=== PATIENT | male | born 1955 | race Caucasian/White ===

== ENCOUNTER 2017-09-13 09:05 | Observation (INO) ==
[2017-09-13] MEDS ORDERED: predniSONE 20 MG TABLET PO ONE (09:25)
[2017-09-13] MEDS ORDERED: Ipratropium/Albuterol Neb 3 ML IH ONE (09:26)
--- NOTE | 2017-09-13 09:29 | Emergency Department Note ---
Disposition Clinical Impression: COPD with exacerbation, Hypoxia Disposition: Home, Self-Care Condition: Good Instructions: Chronic Obstructive Pulmonary Disease (ED) Reasons to Return/Additional Instructions: Follow-up with PCP in 48 hours for reexamination, also to have conversation concerning further prescription for spiriva. Have your CPAP machine evaluated. Return if you have any worsening shortness of breath. Referrals: Marie Krause, PROVIDER RELATIONS REPRESENTATIVE [Primary Care Provider] - Forms: ED Satisfaction Letter Time of Disposition: 10:55 SOB HPI - General Chief Complaint: ED Shortness of Breath/Dyspnea Stated Complaint: VIVIANE Time Seen by Provider: 09/13/17 09:17 Source: patient, EMS Limitations: no limitations Nursing Notes Reviewed: Yes Vital Signs Reviewed: Yes - History of Present Illness 62-year-old male complains of shortness of breath 1 week. Patient states he has a history of COPD and started to get acutely worse after starting a new medication called Anora, which replaces his spiriva, which will no longer be covered by his insurance. Patient complains of pain in the left lower lung, which is worse with coughing and states he thinks he has lung collapse in that area. He states he has sharp 8/10 intermittent pain worse with inspiration and nothing makes it better. Patient also complains of subjective fevers. Report from EMS states that patient was on a CPAP at home when they arrived. They stated his initial O2 saturation was around 70s on room air and mid to high 80s on the CPAP. Patient was transferred onto their O2 system and patient's O2 sats were up to 94%. No other interventions were given. - Related Data Home Medications Medication Instructions Recorded Confirmed Albuterol Sulfate [Ventolin Hfa] 1 puff IH AD 09/13/17 09/13/17 Fluticasone Propionate Nasal 1 spr NS DAILY 09/13/17 09/13/17 [Flonase] Lisinopril-HCTZ 10-12.5 [Prinzide 1 tab PO DAILY 09/13/17 09/13/17 10-12.5] OxyCODONE/APAP 7.5/325 [Percocet 1 each PO Q6HR PRN 09/13/17 09/13/17 7.5/325 MG] Tiotropium [Spiriva] 1 puff IH DAILY 09/13/17 09/13/17 Allergies Allergy/AdvReac Type Severity Reaction Status Date / Time Amoxicillin [From Augmentin] AdvReac Itching Verified 05/01/15 10:08 clavulanic acid AdvReac Itching Verified 05/01/15 10:08 [From Augmentin] All systems ED: reviewed and negative except as stated. Review of Systems: As Per HPI Constitutional: Reports: fever Respiratory: Reports: cough, dyspnea Past Medical History - Past Medical History Attestation: Yes The following information was validated with the patient. Source: patient, nursing notes reviewed Medical history: Reports: arthritis, COPD, hypertension Psychiatric history: Reports: no psych history - Social History Smoking Status: Former smoker Alcohol use: Reports: occasionally Physical Exam Vital Signs Temperature 98.9 F 09/13/17 09:07 Pulse Rate 97 09/13/17 09:07 Respiratory Rate 19 09/13/17 09:07 Blood Pressure 189/110 09/13/17 09:07 O2 Sat by Pulse Oximetry 87 09/13/17 09:07 Temperature 98.9 F 09/13/17 09:07 Pulse Rate 97 09/13/17 09:07 Respiratory Rate 19 09/13/17 09:07 Blood Pressure 189/110 09/13/17 09:07 O2 Sat by Pulse Oximetry 91 09/13/17 09:21 Oxygen Delivery Oxygen Delivery Room Air CONSTITUTIONAL: Alert and oriented X3, well-nourished, well appearing, in no apparent distress HEAD: Normocephalic; atraumatic. EYES: PERRL, no scleral icterus. NOSE: The nose is normal in appearance without rhinorrhea RESP: Normal chest excursion with respiration; ; no wheezes, rhonchi, fine bibasilar rales can be heard upon auscultation CARD: Regular rhythm, without murmurs, rub or gallop ABD: Non-distended; non-tender, soft,without rigidity, rebound or guarding SKIN: Normal for age and race; warm and dry; no apparent lesions - General Limitations: no limitations General appearance: alert Course - Reevaluation(s) Reevaluation #1: Patient's VBG was unremarkable. Patient states breathing is improved and discomfort with inspiration is lessening after breathing treatment. Patient awaiting go to chest x-ray Time: 10:07 Reevaluation #2: 1055 hrs.: Patient's is at bedside and asked if patient had the flu, patient then divulged that he had a fever of 101 last night. 1117 hrs: Patient failed his ambulation test with a drop in O2 sat down to 80%. Current plan is patient to be admitted Time: 11:17 - Consultations Consultation #1: Dr. [facility] has accepted the patient for admission Time: 11:56 Vital Signs Temperature 98.9 F 09/13/17 09:07 Pulse Rate 97 09/13/17 09:07 Respiratory Rate 19 09/13/17 09:07 Blood Pressure 189/110 09/13/17 09:07 O2 Sat by Pulse Oximetry 87 09/13/17 09:07 Temperature 98.9 F 09/13/17 09:07 Pulse Rate 94 09/13/17 13:36 Respiratory Rate 16 09/13/17 13:36 Blood Pressure 190/99 09/13/17 13:36 O2 Sat by Pulse Oximetry 91 09/13/17 13:36 Oxygen Delivery Oxygen Delivery Room Air Shortness of Breath/Dyspnea - MDM Narrative Medical decision making narrative: Patient presents with SOB concerning for COPD exacerbation and complains of subjective fevers. FeverCurrent plan is to assess for pneumonia. Patient's low risk for PE under Wells criteria and clinical signs of DVT, PE is not my #1 , heart rate was less than 100 and patient denies any immobilization or previous surgery with an past 4 weeks. No hemoptysis no history of cancer or malignancy. Other possibilities for differential include ACS/TX, aortic dissection, pneumothorax, but currently doubt at this time. The patient has no description of tearing chest pain from front to back and no pulse deficit. Patient has no decrease in lung sounds but will verify with chest x-ray for possible pneumothorax. CBC, BMP, troponin ordered to rule out TX the patient's EKG shows normal sinus rhythm no signs of ischemia. He was given DuoNeb therapy which he states improved his symptoms, and chest x- ray was negative for any signs of pneumothorax or pneumonia, but showed bilateral pleural effusions and lung bases. Chest x-ray was compared to previous chest x-ray months ago which show the same picture. Upon ambulation patient's oxygen saturation dropped to 80% while on oxygen. Failure to maintain his O2 sats at his normal baseline requires admission. Patient understands and agrees to this is a true admission. Dr. Brown [facility] has accepted the patient for admission and asked that the patient be started on one dose of Lasix 40 mg IV, and BNP ordered. Both of which has been completed. - Lab Data Lab results reviewed: Yes I reviewed the patient's lab results. Lab results narrative: Short CBC 09/13/17 Range/Units 09:29 WBC 8.9 (4.3-11.1) K/mcL Hgb 14.3 (12.9-16.9) g/dL Hct 41.7 (37.5-50.1) % Plt Count 238 (140-400) K/mcL Neutrophils # 6.5 (1.6-8.9) K/mcL BMP 09/13/17 Range/Units 09:29 Sodium 133 L (136-145) mEq/L Potassium 3.5 (3.5-5.1) mEq/L Chloride 97 L (98-107) mEq/L Carbon Dioxide 26 (23-29) mEq/L BUN 10 (8-23) mg/dL Creatinine 0.70 (0.70-1.30) mg/dL Glucose 114 H (70-105) mg/dL Calcium 9.3 (8.6-10.3) mg/dL Cardiac Enzymes 09/13/17 Range/Units 09:29 Troponin I 0.03 (< 0.04) ng/mL Result diagrams: 09/13/17 09:29 09/13/17 09:29 Lab Results 09/13/17 09/13/17 09/13/17 Range/Units 09:29 09:29 09:29 WBC 8.9 (4.3-11.1) K/mcL RBC 4.69 (4.19-5.50) M/mcL Hgb 14.3 (12.9-16.9) g/dL Hct 41.7 (37.5-50.1) % MCV 88.9 (83.0-100.0) fL MCH 30.5 (28.0-33.3) pg MCHC 34.3 (31.6-35.5) g/dL RDW 12.6 (11.5-14.5) % Plt Count 238 (140-400) K/mcL MPV 8.1 L (9.4-12.4) fL Immature Gran % 0.6 (0-4) % Seg Neutrophils % 73.0 % Lymphocytes % 16.0 % Monocytes % 9.3 % Eosinophils % 0.9 % Basophils % 0.2 % Neutrophils # 6.5 (1.6-8.9) K/mcL Lymphocytes # 1.4 (0.6-4.6) K/mcL Monocytes # 0.8 (0.0-1.3) K/mcL Eosinophils # 0.1 (0.0-0.6) K/mcL Basophils # 0.0 (0.0-0.2) K/mcL VBG pH (7.32-7.42) pH Units VBG pCO2 (41-51) mmHg VBG pO2 (25-50) mmHg VBG HCO3 (21-27) mEq/L Sodium 133 L (136-145) mEq/L Potassium 3.5 (3.5-5.1) mEq/L Chloride 97 L (98-107) mEq/L Carbon Dioxide 26 (23-29) mEq/L BUN 10 (8-23) mg/dL Creatinine 0.70 (0.70-1.30) mg/dL Est GFR ( Amer) > 60 (> 60) Est GFR (Non-Af Amer) > 60 (> 60) BUN/Creatinine Ratio 14 (6-26) Glucose 114 H (70-105) mg/dL Calculated Osmolality 276 L (280-300) Calcium 9.3 (8.6-10.3) mg/dL Troponin I 0.03 (< 0.04) ng/mL B-Natriuretic Peptide (Less than 100) pg/mL 09/13/17 09/13/17 Range/Units 09:29 09:49 WBC (4.3-11.1) K/mcL RBC (4.19-5.50) M/mcL Hgb (12.9-16.9) g/dL Hct (37.5-50.1) % MCV (83.0-100.0) fL MCH (28.0-33.3) pg MCHC (31.6-35.5) g/dL RDW (11.5-14.5) % Plt Count (140-400) K/mcL MPV (9.4-12.4) fL Immature Gran % (0-4) % Seg Neutrophils % % Lymphocytes % % Monocytes % % Eosinophils % % Basophils % % Neutrophils # (1.6-8.9) K/mcL Lymphocytes # (0.6-4.6) K/mcL Monocytes # (0.0-1.3) K/mcL Eosinophils # (0.0-0.6) K/mcL Basophils # (0.0-0.2) K/mcL VBG pH 7.39 (7.32-7.42) pH Units VBG pCO2 43 (41-51) mmHg VBG pO2 47 (25-50) mmHg VBG HCO3 26 (21-27) mEq/L Sodium (136-145) mEq/L Potassium (3.5-5.1) mEq/L Chloride (98-107) mEq/L Carbon Dioxide (23-29) mEq/L BUN (8-23) mg/dL Creatinine (0.70-1.30) mg/dL Est GFR ( Amer) (> 60) Est GFR (Non-Af Amer) (> 60) BUN/Creatinine Ratio (6-26) Glucose (70-105) mg/dL Calculated Osmolality (280-300) Calcium (8.6-10.3) mg/dL Troponin I (< 0.04) ng/mL B-Natriuretic Peptide 43 (Less than 100) pg/mL - Radiology Data Radiology results reviewed: Yes I reviewed the patient's radiology results. Chest X-Ray 09/13/17 09:24 IMPRESSION: Small bilateral pleural effusions and mild pulmonary edema. D/ / Jett Knight MD / Jett Knight MD Interpreting Provider: Jett Knight MD - EKG Data EKG attestation: Yes I reviewed and interpreted this EKG. EKG results narrative: EKG taken 09/13/2017@0916 hrs. shows a sinus rhythm at a rate of [address] elevations or depressions in any leads, no QRS widened QT prolongation. No S1, Q3,T3 EKG is equivalent and waveform to increase EKG taken 07/13/2014 shows a sinus rhythm as well.
--- NOTE | 2017-09-13 09:32 | Emergency Department Note ---
START Narrative - START START: I examined this patient and my medical decision-making was reviewed with the SALES VICE PRESIDENT/PA/Advanced Practice Nurse/Resident Physician. I agree with the documented findings, disposition and treatment plan as described except to the extent set forth below. ED attending: Patient's emergency medicine resident Dr. Royer Marshall. Please see copy of this note for H&P evaluation and management and ED disposition. We both had independent [id number] time in contact with this patient. Briefly: 62-year-old former smoker quit 6 months ago on home CPAP recently was attempted be changed office rebate nor. Comes in with increasing shortness of breath and cough for some maybe sputum change in fever. Denies chest pain or trauma. No ill contacts. Faint expiratory wheeze and bibasilar crackles. Hypertensive but initially satting about 70s on room air then on his CPAP machine he is in the high 80s low 90s. Patient will get a DuoNeb blood work and lateral chest x-ray or steroids. Patient does have 2 months of backup Spiriva which she will now use. Disposition pending.
[2017-09-13 09:48] LABS: Basophils % 0.2 %; Eosinophils # 0.1 K/mcL (0.0-0.6); Eosinophils % 0.9 %; Hematocrit 41.7 % (37.5-50.1); Hemoglobin 14.3 g/dL (12.9-16.9); Immature Granulocytes % 0.6 % (0-4); Lymphocytes # 1.4 K/mcL (0.6-4.6); Mean Corpuscular HGB Conc 34.3 g/dL (31.6-35.5); Mean Corpuscular Hemoglobin 30.5 pg (28.0-33.3); Mean Corpuscular Volume 88.9 fL (83.0-100.0); Mean Platelet Volume 8.1 fL (9.4-12.4); Monocytes # 0.8 K/mcL (0.0-1.3); Monocytes % 9.3 %; Neutrophils # 6.5 K/mcL (1.6-8.9); Platelet Count 238 K/mcL (140-400); Red Blood Count 4.69 M/mcL (4.19-5.50); Red Cell Distribution Width 12.6 % (11.5-14.5)
[2017-09-13 09:51] LABS: VBG HCO3 26 mEq/L (21-27); VBG PCO2 43 mmHg (41-51); VBG PH 7.39 pH Units (7.32-7.42); VBG PO2 47 mmHg (25-50)
[2017-09-13 10:11] LABS: BUN/Creatinine Ratio 14 (6-26); Blood Urea Nitrogen 10 mg/dL (8-23); Calcium 9.3 mg/dL (8.6-10.3); Carbon Dioxide 26 mEq/L (23-29); Chloride 97 mEq/L (98-107); Glucose 114 mg/dL (70-105); Osmolality,Calculated 276 (280-300); Potassium 3.5 mEq/L (3.5-5.1); Sodium 133 mEq/L (136-145); eGFR For African Americans > 60 (> 60); eGFR For Non-African Americans > 60 (> 60)
[2017-09-13] MEDS ORDERED: Furosemide 40 MG/4 ML VIAL IVP ONE (11:56)
[2017-09-13] MEDS ORDERED: *HR* Enoxaparin 40 MG/0.4 ML SYRINGE SQ ONE (13:41)
[2017-09-13] MEDS ORDERED: Naloxone 0.4 MG/ML INJ IVP PRN (13:44)
--- NOTE | 2017-09-13 13:59 | Event Note ---
Date of Encounter: 09/13/17 Time of Encounter: 13:57 1. Acute hypoxic respiratory failure possibly secondary to acute diastolic CHF exacerbation with bilateral pleural effusions and mild acute pulmonary edema Send a CT angiogram of the chest as there is suspicion for possible pulmonary emboli Depending on these results we will decide on continuing Lasix or starting either Lovenox or heparin 2. History of COPD, consider oral steroids, DuoNeb's and oxygen therapy 3. Accelerated hypertension, continue lisinopril, hydrochlorothiazide and add hydralazine IV as needed 4. Mild fever, unclear etiology Omeprazole for GI prophylaxis and Lovenox for DVT prophylaxis. The patient will be admitted for observation. Full code. Time spent on this admission 40 minutes. H&P will be completed by Resident Jana Kim
--- NOTE | 2017-09-13 14:05 | Internal Med History&Physical ---
<Jana Kim - Last Filed: 09/13/17 14:40> Date of Encounter: 09/13/17 Time of Encounter: 13:45 Assessment and Plan (1) Acute respiratory failure with hypoxia Current visit: Yes Status: Acute Acute respiratory failure with hypoxia concerning for PE. Possibly secondary to acute diastolic CHF exacerbation with bilateral pleural effusions and acute pulmonary edema or COPD exacerbation tachycardic HR 97 SPO2 88% BP 170/88 WBC WNL BNP 43 CXR demonstrated small bilateral pleural effusion and pulmonary edema VBG: pH 7.39, CO2 43, pO2 47, HCO3 26 influenza negative Plan STAT CTA pending echo ordered Lovenox 40mg once supplemental oxygen PRN continuous pulse ox and telemetry monitoring consider steroids, lasix, and heparin pending CTA result strict I&O daily weights (2) Hypertension Current visit: Yes Status: Acute History of hypertension taking lisinopril-hydrochlorothiazide BP 170/88 continue home medication hydralazine PRN Qualifiers: Qualified Code(s): I10 - Essential (primary) hypertension (3) COPD (chronic obstructive pulmonary disease) Current visit: Yes Status: Acute History of COPD controlled with Spiriva and ventolin former smoker 1-2 ppd/50yr CXR demonstrated small bilateral pleural effusion pulmonary edema Lungs were clear to auscultation with Rales bilateral base of lungs continue duonebs consider steroids supplemental oxygen PRN Qualifiers: Qualified Code(s): J44.9 - Chronic obstructive pulmonary disease, unspecified (4) DVT prophylaxis Current visit: Yes Status: Acute Lovenox sq Internal Medicine - H&P: HPI Chief complaint: shortness of breathe Admitted From: Emergency Dept Plans for Post Hospital Care: Home History of present illness: Mr. Bateman is a 62 year old male with a past medical history of COPD and hypertension. He reported that on Wednesday he became short of breath after switching to a new inhaler. The shortness of breath progressively worsened throughout the week and on Wednesday he called his PCP who instructed him to stop taking the new inhaler and go back to using his Spiriva. Despite the change of inhalers the shortness of breath worsened to the point that he would walk down the [place]ad and would be short of breathe, so he called his PCP who instructed him to call EMS. He has pleuritic back pain that he has never had before, it is sharp in nature. Moving around made shortness of breath worse and sitting still made it better. His COPD has been well-controlled with his Spiriva and Ventolin , he is not on oxygen. He reports that he has had fever, chills, and had blood in his tissue when he blew his nose. He has never been hospitalized for COPD exacerbation. He denies chest pain, nausea, vomiting, diaphoresis, hemoptysis, cough. He denies recent travel, sickness, trauma, blood clots (PE or DVT), immobilization, MS, stroke. He has had his flu shot this year. He is a former smoker of 1-2 packs per day for 50 years, he quit 6 months ago. Occasional alcohol and no drug use. Family history of mother having lung cancer. He is alongside his cousin. In the ED patient was afebrile, tachycardic HR 97, SPO2 88%, BP 170/88. CXR showed small bilateral pleural effusion and pulmonary edema. Upon my examination of the patient he reported that he was not currently having difficulty in breathing on room air SPO2 88% when sitting but when he was walked alongside a nurse earlier he had de-saturation of SPO2 to 81%. Past Med Surg Social Fam HX - Past Medical History Medical history: arthritis, COPD, hypertension Psychiatric history: no psych history - Past Surgical History Surgical History: appendectomy, hip replacement, knee replacement - Social History Smoking Status: Former smoker (1-2 ppd /50yr) Alcohol use: occasionally Drug use: none Recent Out of Country Travel Within the Last 8 Weeks: No - Family History Mother Hx Family Cancer: Yes (Lung cancer) Internal Medicine - H&P: Meds Albuterol Sulfate [Ventolin Hfa] 1 puff IH AD 09/13/17 [History] Fluticasone Propionate Nasal [Flonase] 1 spr NS DAILY 09/13/17 [History] Lisinopril-HCTZ 10-12.5 [Prinzide 10-12.5] 1 tab PO DAILY 09/13/17 [History] OxyCODONE/APAP 7.5/325 [Percocet 7.5/325 MG] 1 each PO Q6HR PRN 09/13/17 [ History] Tiotropium [Spiriva] 1 puff IH DAILY 09/13/17 [History] 3 Allergy/AdvReac Type Severity Reaction Status Date / Time Amoxicillin [From Augmentin] AdvReac Itching Verified 05/01/15 10:08 clavulanic acid AdvReac Itching Verified 05/01/15 10:08 [From Augmentin] All Systems PM: A 10-system review of systems was performed and is negative for pertinent findings except as documented above in the HPI. Review of systems: - Constitutional: admits fevers, chills denies weight loss, generalized fatigue - Head/Neck: Denies LIANG, neck stiffness - EENT: Denies vision changes/blurriness, tinnitus, auditory changes, rhinorrhea , congestion - CVS: Denies chest pain, palpitations, syncope - Pulm: admits SOB Denies cough, sputum, hematemesis, wheezing - GI: Denies abdominal pain, nausea, vomiting, diarrhea, constipation, melena - MSK: admits pleuritic back pain Denies joint pain, limited ROM, weakness - Skin: Denies rashes, ulcers, color changes, itching - Constitutional Vitals: Temp Pulse Resp BP Pulse Ox 98.9 F 94 16 190/99 91 09/13/17 09:07 09/13/17 13:36 09/13/17 13:36 09/13/17 13:36 09/13/17 13:36 Exam: Gen.: Vitals noted. No acute distress. AAOx3 HEENT: oropharynx clear, Normocephalic, atraumatic Neck: Supple. No adenopathy. Cardiac: RRR, no murmur, +S1/S2 Pulmonary: + b/l rales CTA bilaterally, no wheezes, or rhonchi, equal chest expansion Abdomen: soft, nontender, Bowel sounds noted, no guarding Back: Nontender throughout. MSK: ROM intact, no joint swelling noted Extremities: no BLE edema, nontender calf, no cyanosis or clubbing Neuro: A&Ox3, moves all extremities Psych: Appropriate mood and behavior Internal Med - H&P Results - Labs CBC & Chem 7: 09/13/17 09:29 09/13/17 09:29 Labs: Short CBC 09/13/17 Range/Units 09:29 WBC 8.9 (4.3-11.1) K/mcL Hgb 14.3 (12.9-16.9) g/dL Hct 41.7 (37.5-50.1) % Plt Count 238 (140-400) K/mcL Neutrophils # 6.5 (1.6-8.9) K/mcL BMP 09/13/17 09:29 Sodium 133 L Potassium 3.5 Chloride 97 L Carbon Dioxide 26 BUN 10 Creatinine 0.70 Glucose 114 H Calcium 9.3 Cardiac Enzymes 09/13/17 Range/Units 09:29 Troponin I 0.03 (< 0.04) ng/mL - ABG Interpretation ABG results: 09/13/17 09:49 VBG pH 7.39 VBG pCO2 43 VBG pO2 47 VBG HCO3 26 - Impressions ITS Impressions Chest X-Ray 09/13/17 09:24 IMPRESSION: Small bilateral pleural effusions and mild pulmonary edema. D/ / Jett Knight MD / Jett Knight MD Interpreting Provider: Jett Knight MD <Dylon Miranda H - Last Filed: 09/13/17 14:54> Date of Encounter: 09/13/17 Internal Medicine - H&P: HPI History of present illness: Mr. Bateman is a 62 year old male All Systems PM: A 10-system review of systems was performed and is negative for pertinent findings except as documented above in the HPI. - Constitutional Vitals: Temp Pulse Resp BP Pulse Ox 98.9 F 94 16 190/99 91 09/13/17 09:07 09/13/17 13:36 09/13/17 13:36 09/13/17 13:36 09/13/17 13:36 Internal Med - H&P Results - Labs CBC & Chem 7: 09/13/17 09:29 09/13/17 09:29 - Attending Attestation 1. Acute hypoxic respiratory failure possibly secondary to acute diastolic CHF exacerbation with bilateral pleural effusions and mild acute pulmonary edema Send a CT angiogram of the chest as there is suspicion for possible pulmonary emboli Depending on these results we will decide on continuing Lasix or starting either Lovenox or heparin 2. History of COPD, consider oral steroids, DuoNeb's and oxygen therapy 3. Accelerated hypertension, continue lisinopril, hydrochlorothiazide and add hydralazine IV as needed 4. Mild fever, unclear etiology Omeprazole for GI prophylaxis and Lovenox for DVT prophylaxis. The patient will be admitted for observation. Full code. Time spent on this admission 40 minutes. I examined this patient and my medical decision-making was reviewed with the Resident Physician. I agree with the documented findings, disposition and treatment plan as described except to the extent set forth below.
[2017-09-13] MEDS ORDERED: Ipratropium/Albuterol Neb 3 ML IH PRN (14:18)
[2017-09-13] MEDS: Ipratropium/Albuterol Neb 3 ML IH SCH ×2 (15:33→22:57)
[2017-09-13] MEDS: Furosemide 20 MG/2 ML VIAL IVP SCH ×2 (16:12→20:02)
[2017-09-13] MEDS: Levofloxacin 750 MG/150 ML 750 MG/150 ML BAG IVPB SCH (16:23)
[2017-09-13] MEDS: MethylPREDNISolone 40 MG/ML VIAL IVP SCH ×2 (16:23→23:48)
[2017-09-14] MEDS: Ipratropium/Albuterol Neb 3 ML IH SCH ×2 (05:06→10:55)
[2017-09-14 05:42] LABS: Hematocrit 41.6 % (37.5-50.1); Hemoglobin 14.3 g/dL (12.9-16.9); Mean Corpuscular HGB Conc 34.4 g/dL (31.6-35.5); Mean Corpuscular Hemoglobin 30.3 pg (28.0-33.3); Mean Corpuscular Volume 88.1 fL (83.0-100.0); Mean Platelet Volume 8.4 fL (9.4-12.4); Platelet Count 286 K/mcL (140-400); Red Blood Count 4.72 M/mcL (4.19-5.50); Red Cell Distribution Width 12.6 % (11.5-14.5)
[2017-09-14 05:52] LABS: BUN/Creatinine Ratio 24 (6-26); Blood Urea Nitrogen 17 mg/dL (8-23); Calcium 8.9 mg/dL (8.6-10.3); Carbon Dioxide 24 mEq/L (23-29); Chloride 103 mEq/L (98-107); Glucose 203 mg/dL (70-105); Osmolality,Calculated 289 (280-300); Potassium 3.9 mEq/L (3.5-5.1); Sodium 136 mEq/L (136-145); eGFR For African Americans > 60 (> 60); eGFR For Non-African Americans > 60 (> 60)
[2017-09-14] MEDS ORDERED: *HR* Enoxaparin 40 MG/0.4 ML SYRINGE SQ SCH (06:00)
[2017-09-14 07:38] VITALS: BP 143/79
--- NOTE | 2017-09-14 08:01 | Discharge Summary ---
Date of Encounter: 09/14/17 Time of Encounter: 07:58 - Discharge Diagnosis (1) Acute respiratory failure with hypoxia Priority: Primary Status: Acute Comments: Acute hypoxic respiratory failure secondary to acute COPD exacerbation due to community-acquired pneumonia in combination with acute diastolic CHF exacerbation with bilateral pleural effusions and mild acute pulmonary edema (2) COPD with exacerbation Priority: Primary Status: Acute (3) Hypertension Priority: Secondary Status: Acute Qualifiers: Hypertension type: essential hypertension Qualified Code(s): I10 - Essential (primary) hypertension - Discharge Medications Prescriptions: Furosemide [Lasix] 40 mg PO DAILY #30 tablet levoFLOXacin [Levaquin] 750 mg PO DAILY #6 tablet Lisinopril [Zestril] 20 mg PO DAILY #30 tablet predniSONE [PredniSONE] 20 mg PO DAILY 10 Days tablet Home Medications: Albuterol Sulfate [Ventolin Hfa] 1 puff IH AD 09/13/17 [History] Fluticasone Propionate Nasal [Flonase] 1 spr NS DAILY 09/13/17 [History] OxyCODONE/APAP 7.5/325 [Percocet 7.5/325 MG] 1 each PO Q6HR PRN 09/13/17 [ History] Tiotropium [Spiriva] 1 puff IH DAILY 09/13/17 [History] Furosemide [Lasix] 40 mg PO DAILY #30 tablet 09/14/17 [Rx] Lisinopril [Zestril] 20 mg PO DAILY #30 tablet 09/14/17 [Rx] levoFLOXacin [Levaquin] 750 mg PO DAILY #6 tablet 09/14/17 [Rx] predniSONE [PredniSONE] 20 mg PO DAILY 10 Days tablet 09/14/17 [Rx] Allergies/Adverse Reactions: 3 Allergy/AdvReac Type Severity Reaction Status Date / Time Amoxicillin [From Augmentin] AdvReac Itching Verified 05/01/15 10:08 clavulanic acid AdvReac Itching Verified 05/01/15 10:08 [From Augmentin] Date of admission: 09/13/17 14:14 Primary care physician: Marie Krause CNP - Patient Status Disposition: Home, Self-Care Condition: Good Overall status at discharge: patient is progressing back to baseline - Discharge Instructions Follow Up With: Marie Krause CNP [Primary Care Provider] - Additional Instructions: Follow-up with primary care physician within the next 7 days. Continue prednisone taper for 10 days, stop lisinopril and hydrochlorothiazide and take lisinopril 20 mg daily. Continue Lasix 40 mg daily, complete 6 more days of Levaquin/antibiotic. Follow-up echocardiogram report with primary care physician. - Diet and Activity Activity: increase activity as tolerated Diet: low fat, low cholesterol Hospital course: Mr. Bateman is a 62 year old male with a past medical history of COPD not oxygen dep and hypertension. He reported that on Wednesday he became short of breath after switching to a new inhaler. The shortness of breath progressively worsened throughout the week and on Wednesday he called his PCP who instructed him to stop taking the new inhaler and go back to using his Spiriva. Despite the change of inhalers the shortness of breath worsened to the point that he would walk down the [place]ad and would be short of breathe, so he called his PCP who instructed him to call EMS. He has pleuritic back pain that he has never had before, it is sharp in nature. Moving around made shortness of breath worse and sitting still made it better. His COPD has been well-controlled with his Spiriva and Ventolin, he is not on oxygen. He reported that he has had fever, chills, and had blood in his tissue when he blew his nose. He has never been hospitalized for COPD exacerbation. He denies chest pain, nausea, vomiting, diaphoresis, hemoptysis, cough. He denies recent travel, sickness, trauma, blood clots (PE or DVT), immobilization, NC, stroke. He has had his flu shot this year. He is a former smoker of 1-2 packs per day for 50 years, he quit 6 months ago. Occasional alcohol and no drug use. Family history of mother having lung cancer. He is alongside his cousin. In the ED patient was afebrile, tachycardic HR 97, SPO2 88%, BP 170/88. CXR showed small bilateral pleural effusion and pulmonary edema. Upon my examination of the patient he reported that he was not currently having difficulty in breathing on room air SPO2 88% when sitting but when he was walked alongside a nurse earlier he had de-saturation of SPO2 to 81%. CT scan of the chest showed:1. No acute pulmonary artery embolism. 2. Small effusions with bibasilar atelectasis or infiltrate, left greater than right. 3. Bilateral upper lobe ground-glass densities with retraction, fibrosis and honeycombing. Findings suggest sequela of remote postinfectious or inflammatory origin. 4. Indeterminate mediastinal and hilar lymphadenopathy. Findings may be reactive in nature. The patient was started on Solu-Medrol, Levaquin, Lasix and feels much better today. Echocardiogram is pending, she was given the option to stay another day but prefers to go home. His blood pressure was extremely high came up to the 190s, his lisinopril will be switched to 20 mg daily and hydrochlorothiazide will be discontinued since he is going to be on Lasix. - Time Spent with Patient Total time spent providing and/or coordinating discharge services: Greater than 30 minutes (40 min) - Constitutional Vitals: Temp Pulse Resp BP Pulse Ox 98.4 F 86 18 143/79 94 09/14/17 07:37 09/14/17 07:37 09/14/17 07:37 09/14/17 07:37 09/14/17 07:37 General appearance: Present: A&O X 3 - Head Head exam: Present: atraumatic, normocephalic - Eye Eye exam: Present: PERRL, conjuntiva pink, sclera anicteric Pupils: Present: PERRL - Neck Neck exam general surgery: Present: supple, trachea midline. Absent: lymphadenopathy - Respiratory Respiratory exam: Present: CTAB. Absent: accessory muscle use, rales, rhonchi, wheezes - Cardiovascular Cardiovascular exam: Present: RRR, +S1, +S2. Absent: diastolic murmur, gallop, rubs, systolic murmur - GI/Abdominal GI/Abdominal exam: Present: normal bowel sounds, soft, no peritoneal signs. Absent: distended, tenderness - Extremities Exam Extremities exam: Present: warm, radial pulses palpable and symmetrical. Absent : calf tenderness, cyanotic, pedal edema - Neurological Exam Neurological exam: Present: CN II-XII intact, oriented X3, no focal deficits. Absent: pronater drift, facial droop, speech deficit - Skin Skin exam: Present: dry, intact
[2017-09-14] MEDS ORDERED: Lisinopril 20 MG TABLET PO SCH (09:00)
[2017-09-14] MEDS ORDERED: Pantoprazole 40 MG VIAL IVP SCH (09:00)
[2017-09-14] MEDS: Levofloxacin 750 MG/150 ML 750 MG/150 ML BAG IVPB SCH (09:35)
[2017-09-14] MEDS: Furosemide 20 MG/2 ML VIAL IVP SCH (09:35)
[2017-09-14] MEDS: MethylPREDNISolone 40 MG/ML VIAL IVP SCH (09:35)
--- NOTE | 2017-09-14 19:42 | Electrocardiograph Report ---
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
== END 2017-09-14 14:52 | disposition home or self-care (01) ==
LOC: 3BNU 09:05 → EMEROO 09:05 → 3BNU 14:45
PROVIDERS: ADMIT Internal Medicine; ATTEND Registered Nurse

== ENCOUNTER 2020-03-11 09:00 | Inpatient (IN) ==
[2020-03-11] MEDS ORDERED: *HR* Labetalol 20 MG/4 ML SYRINGE IVP PRN (09:38)
[2020-03-11] MEDS ORDERED: Famotidine 20 MG/2 ML VIAL IVP ONE (09:38)
[2020-03-11] MEDS ORDERED: Acetaminophen IV 1,000 MG/100 ML BAG IVPB ONE (09:38)
[2020-03-11] MEDS ORDERED: *HR* Promethazine 25 MG/ML VIAL IVP PRN (09:38)
[2020-03-11] MEDS ORDERED: *HR* HYDROmorphone 2 MG TABLET PO PRN (09:38)
[2020-03-11] MEDS ORDERED: Pregabalin 75 MG CAPSULE PO ONE (09:38)
[2020-03-11] MEDS ORDERED: Ringers Solution, Lactated 1,000 ML IVC SCH (10:15)
[2020-03-11] MEDS ORDERED: Clindamycin 900 MG/50 ML 900 MG/50 ML IV.SOLN IVPB ONE (10:23)
[2020-03-11] MEDS ORDERED: Lidocaine -MPF 2% 2 ML VIAL ONE (10:32)
[2020-03-11] MEDS ORDERED: *HR* FentaNYL (PF) 100 MCG/2 ML VIAL ONE (10:32)
[2020-03-11] MEDS ORDERED: *HR* Midazolam HCl 2 MG/2 ML VIAL ONE (10:32)
[2020-03-11] MEDS ORDERED: *HR* Propofol 200 MG/20 ML VIAL IVP ONE ×2 (10:32→12:10)
[2020-03-11] MEDS ORDERED: *HR* Succinylcholine 200 MG/10 ML VIAL IVP ONE (10:32)
[2020-03-11] MEDS ORDERED: *HR* PHENYLEPHRINE 1,000 MCG/10 ML SYRINGE IVP ONE (11:19)
[2020-03-11] MEDS ORDERED: Ondansetron 4 MG/2 ML VIAL ONE (11:40)
[2020-03-11] MEDS ORDERED: Dexamethasone 4 MG/ML VIAL ONE (11:41)
[2020-03-11] MEDS ORDERED: EPHEDrine 50 MG/ML VIAL ONE (11:42)
[2020-03-11] MEDS: *HR* HYDROmorphone PF 0.5 MG/0.5 ML SYRINGE IVP PRN ×4 (12:31→13:07)
[2020-03-11] MEDS ORDERED: *HR* Rocuronium Bromide 50 MG/5 ML VIAL ONE (12:37)
[2020-03-11] MEDS: *HR* OxyCODONE Immed Rel 5 MG TABLET PO PRN ×2 (12:49→13:06)
[2020-03-11] MEDS ORDERED: Fluticasone Propionate Nasal 50 MCG/SPRAY BOTTLE NS PRN (14:03)
[2020-03-11] MEDS ORDERED: Naloxone 0.4 MG/ML INJ IVP PRN (14:03)
[2020-03-11] MEDS: Gabapentin 300 MG CAPSULE PO SCH ×2 (15:00→20:24)
[2020-03-11] MEDS: *HR* HYDROcodone/Acet 5/325 mg TABLET PO PRN (15:01)
[2020-03-11] MEDS: *HR* Heparin 5,000 UNIT/ML VIAL SQ SCH ×2 (15:01→23:36)
[2020-03-11] MEDS: 0.9 % Sodium Chloride 1,000 ML IVC SCH (15:02)
[2020-03-11] MEDS: Ipratropium/Albuterol Neb 3 ML IH SCH ×2 (15:45→20:43)
[2020-03-11] MEDS: Famotidine 20 MG TABLET PO SCH (20:24)
[2020-03-11] MEDS: Sennosides/Docusate Sodium TABLET PO SCH (20:24)
[2020-03-11] MEDS: *HR* HYDROcodone/Acet 10/325 mg TABLET PO PRN (20:24)
[2020-03-12] MEDS: *HR* HYDROcodone/Acet 10/325 mg TABLET PO PRN ×5 (00:42→18:33)
[2020-03-12 01:13] LABS: Hematocrit 40.4 % (37.5-50.1); Mean Corpuscular HGB Conc 32.2 g/dL (31.6-35.5); Mean Corpuscular Volume 96.4 fL (83.0-100.0); Mean Platelet Volume 8.6 fL (9.4-12.4); Platelet Count 181 K/mcL (140-400); Red Blood Count 4.19 M/mcL (4.19-5.50); Red Cell Distribution Width 13.2 % (11.5-14.5)
[2020-03-12 01:32] LABS: % Iron Saturation 12 % (20-55); BUN/Creatinine Ratio 17 (6-26); Blood Urea Nitrogen 16 mg/dL (8-23); Calcium 8.6 mg/dL (8.6-10.3); Carbon Dioxide 23 mEq/L (23-29); Chloride 104 mEq/L (98-107); Glucose 190 mg/dL (70-105); Iron 41 mcg/dL (65-175); Magnesium 1.8 mg/dL (1.6-2.6); Osmolality,Calculated 288 (280-300); Potassium 4.2 mEq/L (3.5-5.1); Sodium 136 mEq/L (136-145); Transferrin 240 mg/dL (203-362); eGFR For African Americans > 60 (> 60); eGFR For Non-African Americans > 60 (> 60)
[2020-03-12] MEDS: 0.9 % Sodium Chloride 1,000 ML IVC SCH (03:27)
[2020-03-12] MEDS: Ipratropium/Albuterol Neb 3 ML IH SCH ×7 (04:40→23:15)
[2020-03-12] MEDS: *HR* Heparin 5,000 UNIT/ML VIAL SQ SCH ×3 (05:23→22:29)
[2020-03-12] MEDS ORDERED: Folic Acid 1 MG in 0.9 % Sodium Chloride 50 ML IVPB ONE (08:08)
[2020-03-12] MEDS ORDERED: Thiamine (B-1) 100 MG in 0.9 % Sodium Chloride 50 ML IVPB ONE (08:08)
[2020-03-12] MEDS ORDERED: Iron Sucrose Complex 400 MG in 0.9 % Sodium Chloride 250 ML IVPB ONE (08:08)
[2020-03-12] MEDS: Furosemide 40 MG TABLET PO SCH (08:16)
[2020-03-12] MEDS: Famotidine 20 MG TABLET PO SCH ×2 (08:16→22:29)
[2020-03-12] MEDS: Gabapentin 300 MG CAPSULE PO SCH ×3 (08:16→22:30)
[2020-03-12] MEDS: lisinopriL 20 MG TABLET PO SCH (08:16)
[2020-03-12] MEDS: Sennosides/Docusate Sodium TABLET PO SCH ×2 (08:16→22:29)
[2020-03-12] MEDS: Aspirin Enteric Coated 81 MG Tablet PO SCH (08:17)
[2020-03-12] MEDS ORDERED: Tiotropium 18 MCG inhalation IH SCH (09:00)
[2020-03-12] MEDS: *HR* HYDROcodone/Acet 5/325 mg TABLET PO PRN (22:30)
[2020-03-13] MEDS: Ipratropium/Albuterol Neb 3 ML IH SCH ×6 (03:20→23:52)
[2020-03-13] MEDS: *HR* HYDROcodone/Acet 10/325 mg TABLET PO PRN ×4 (03:39→18:33)
[2020-03-13] MEDS: *HR* Heparin 5,000 UNIT/ML VIAL SQ SCH ×3 (06:06→21:30)
[2020-03-13] MEDS: Famotidine 20 MG TABLET PO SCH ×2 (07:44→21:30)
[2020-03-13] MEDS: Gabapentin 300 MG CAPSULE PO SCH ×3 (07:44→21:30)
[2020-03-13] MEDS: Sennosides/Docusate Sodium TABLET PO SCH ×2 (07:44→21:30)
[2020-03-13] MEDS: Aspirin Enteric Coated 81 MG Tablet PO SCH (07:44)
[2020-03-13] MEDS: Furosemide 40 MG TABLET PO SCH (07:45)
[2020-03-13] MEDS: lisinopriL 20 MG TABLET PO SCH (07:45)
[2020-03-13] MEDS: Ketorolac 15 MG/ML VIAL IVP SCH ×4 (10:56→23:21)
[2020-03-13] MEDS ORDERED: Bisacodyl 10 MG RECTAL SUPPOSITORY RC PRN (18:38)
[2020-03-14] MEDS: Ipratropium/Albuterol Neb 3 ML IH SCH ×3 (04:33→11:37)
[2020-03-14] MEDS: Ketorolac 15 MG/ML VIAL IVP SCH ×2 (05:25→11:12)
[2020-03-14] MEDS: *HR* Heparin 5,000 UNIT/ML VIAL SQ SCH (05:26)
[2020-03-14] MEDS: Furosemide 40 MG TABLET PO SCH (08:41)
[2020-03-14] MEDS: lisinopriL 20 MG TABLET PO SCH (08:41)
[2020-03-14] MEDS: Famotidine 20 MG TABLET PO SCH (08:41)
[2020-03-14] MEDS: Gabapentin 300 MG CAPSULE PO SCH (08:41)
[2020-03-14] MEDS: Aspirin Enteric Coated 81 MG Tablet PO SCH (08:41)
[2020-03-14] MEDS ORDERED: polyethylene glycoL 3350 17 GM POWD.PACK PO SCH (09:00)
[2020-03-14] MEDS ORDERED: Sennosides/Docusate Sodium TABLET PO SCH (09:00)
[2020-03-14 11:31] VITALS: BP 151/86
== END 2020-03-14 15:10 | DRG 168 ==
LOC: SAMDAY 09:00 → 2NNU 10:31
PROVIDERS: ADMIT Thoracic Surgery (Cardiothoracic Vascular Surgery); ATTEND Thoracic Surgery (Cardiothoracic Vascular Surgery)